=== PATIENT | female | born 1990 | race Two or more races ===

== ENCOUNTER 2023-03-24 05:36 | Inpatient (IN) | payer OTHER ==
[~2023-03-24] VITALS: Ht 160 cm; Wt 1.8 kg
[2023-03-24] MEDS ORDERED: ADULT LOW DOSE81 M1 PO (06:07)
[2023-03-24] MEDS ORDERED: PRENATAL TABLE1 EAC1 PO (06:07)
[2023-03-24] MEDS ORDERED: CEFADROXIL500 MG PO (06:37)
== END 2023-03-27 18:23 | disposition home or self-care (01) | DRG 788 ==
LOC: LDR 05:36 → O/R 05:36 → OB/GYN 06:42 → LDR 07:16 → O/R 03-25 16:55 → OB/GYN 03-25 19:15
PROVIDERS: ADMIT Obstetrics & Gynecology; ATTEND Obstetrics & Gynecology
PROC: 4A1HXCZ Monitoring of Products of Conception, Cardiac Rate, External Approach (ICD-10-PCS; 2023-03-24)
PROC: 10D00Z1 Extraction of Products of Conception, Low, Open Approach (ICD-10-PCS; principal; 2023-03-25 16:00)
DX: O36.8130 Decreased fetal movements, third trimester, not applicable or unspecified (principal); O36.8330 Maternal care for abnormalities of the fetal heart rate or rhythm, third trimester, not applicable or unspecified; Z3A.34 34 weeks gestation of pregnancy; Z37.0 Single live birth; Z20.822 Contact with and (suspected) exposure to COVID-19